=== PATIENT | male | born 1950 | race Caucasian/White ===

== ENCOUNTER → 2021-09-19 | Outpatient (CLI) | payer OTHER ==
[~2021-09-19] MED LIST: CASIRIVIMAB (REGN10933) (EUA) 600 MG, IMDEVIMAB (REGN10987) (EUA) 600 MG in SODIUM CHLO... IVPB ONE; SODIUM CHLORIDE 0.9% 50 ML IVPB ONE; SODIUM CHLORIDE 0.9% 500 ML 500 ML in EMPTY BAG 1 BAG IV PRN
[2021-09-19 07:40] VITALS: RESP 16; TEMP 98.4
[2021-09-19 08:04] VITALS: BP 161/94; PULSE 59
== END | disposition home or self-care (01) ==
LOC: PROCWHC3 07:15
PROVIDERS: ATTEND Internal Medicine Geriatric Medicine
DX: U07.1 COVID-19 (principal)
CPT/HCPCS: 96360; Q0243; M0243